=== PATIENT | male | born 1985 | race Caucasian/White ===

== ENCOUNTER 2017-06-27 18:54 | Emergency (ER) | payer SELFPAY ==
[~2017-06-27] VITALS: Ht 172.7 cm; Wt 102.1 kg
--- NOTE | 2017-06-27 18:58 | ER Report ---
History and Physical Time Seen By MD: 18:57 HPI/ROS CHIEF COMPLAINT: Left lower quadrant abdominal pain HISTORY OF PRESENT ILLNESS: 31-year-old male presents ambulatory to the ER . He only history is obtained through an medical interpreter line. Patient notes 3 days of left lower quadrant intermittent abdominal pain. He did by heavy lifting. Patient notes no nausea, vomiting, diarrhea or constipation. He notes no change in bowel habits. He notes no dysuria, frequency or hematuria. He denies previous abdominal surgery. He describes pain as 4/10, sharp in nature. He denies alleviating or exacerbating factors except as noted above. Patient also denies hernia formation in his groin area. REVIEW OF SYSTEMS: Respiratory: No cough, no dyspnea. Cardiovascular: No chest pain, no palpitations. Gastrointestinal: As above Musculoskeletal: No back pain. Allergies: Coded Allergies: No Known Drug Allergies (Unverified , 06/27/17) Home Meds Active Scripts Tramadol Hcl (TRAMADOL HCL) 50 Mg Tablet, 1 TAB PO Q6H Y for PAIN, #20 MG TAKE ONE TABLETS BY MOUTH every SIX HOURS NEEDED for pain Prov:CARMEN STEVEN DO 06/27/17 Reviewed Nurses Notes: Yes Old Medical Records Reviewed: Yes Hx Smoking: No Hx Substance Use Disorder: No Hx Alcohol Use: No Constitutional Vital Sign - Last 24 Hours 06/27/17 06/27/17 06/27/17 06/27/17 19:01 19:03 19:15 19:17 Temp 98.2 Pulse 71 60 Resp 14 B/P (MAP) 130/84 (99) 130/84 123/76 (92) Pulse Ox 94 95 O2 Delivery Room Air 06/27/17 06/27/17 06/27/17 19:30 19:45 20:00 Pulse 67 68 63 B/P (MAP) 124/86 (99) 116/85 (95) Pulse Ox 93 94 92 Physical Exam General Appearance: The patient is alert, has no immediate need for airway protection and no current signs of toxicity. Vital signs stable, afebrile, pulse ox normal, no acute distress Eyes: Pupils equal and round no injection. Respiratory: Chest is non tender, lungs are clear to auscultation. Cardiac: regular rate and rhythm Gastrointestinal: Abdomen is soft and non tender, no masses, bowel sounds normal. Musculoskeletal: Neck: Neck is supple and non tender. Extremities have full range of motion and are non tender. Skin: No rashes or lesions. DIFFERENTIAL DIAGNOSIS: After history and physical exam differential diagnosis was considered for abdominal pain including but not limited to appendicitis, cholecystitis, gastritis and urinary tract infection. Medical Decision Making Data Points Result Diagram: 06/27/17191406/27/171914 Laboratory Hematology Test 06/27/17 19:00 06/27/17 19:15 Urine Color Straw Urine Clarity Clear Urine pH 5.0 pH (4.8-9.5) Urine Specific [employer] 1.013 Urine Protein Negative mg/dL (NEGATIVE) Urine Glucose (UA) Negative mg/dL (NEGATIVE) Urine Ketones Negative mg/dL (NEGATIVE) Urine Blood Negative (NEGATIVE) Urine Nitrite Negative (NEGATIVE) Urine Bilirubin Negative (NEGATIVE) Urine Urobilinogen Negative mg/dL (0.2-1.9) Urine Leukocyte Esterase Negative (NEGATIVE) Urine RBC None /HPF (0-2/HPF) Urine WBC None /HPF (0-5/HPF) Urine Squamous Epithelial Cells Few /LPF (</=FEW) Urine Bacteria Negative /HPF (NONE-FEW) Urine Mucus None /HPF (NONE-FEW) Red Blood Count 5.95 M/uL (4.00-5.60) Mean Corpuscular Volume 89.5 fL (80.0-96.0) Mean Corpuscular Hemoglobin 31.2 pg (26.0-33.0) Mean Corpuscular Hemoglobin Concent 34.9 g/dL (32.0-36.0) Red Cell Distribution Width 13.3 % (11.5-14.5) Mean Platelet Volume 9.2 fL (7.2-11.1) Neutrophils (%) (Auto) 53.9 % (39.4-72.5) Lymphocytes (%) (Auto) 37.4 % (17.6-49.6) Monocytes (%) (Auto) 6.3 % (4.1-12.4) Eosinophils (%) (Auto) 1.9 % (0.4-6.7) Basophils (%) (Auto) 0.5 % (0.3-1.4) Nucleated RBC Relative Count (auto) 0.1 /100WBC Neutrophils # (Auto) 5.0 K/uL (2.0-7.4) Lymphocytes # (Auto) 3.5 K/uL (1.3-3.6) Monocytes # (Auto) 0.6 K/uL (0.3-1.0) Eosinophils # (Auto) 0.2 K/uL (0.0-0.5) Basophils # (Auto) 0.0 K/uL (0.0-0.1) Nucleated RBC Absolute Count (auto) 0.01 K/uL Sodium Level 138 mmol/L (137-145) Potassium Level 3.4 mmol/L (3.5-5.0) Chloride Level 102 mmol/L (98-107) Carbon Dioxide Level 22 mmol/L (22-30) Blood Urea Nitrogen 15 mg/dl (9-21) Creatinine 0.90 mg/dl (0.66-1.25) Glomerular Filtration Rate Calc > 60.0 Random Glucose 112 mg/dl (75-110) Calcium Level 9.0 mg/dl (8.4-10.2) Total Bilirubin 0.6 mg/dl (0.2-1.3) Aspartate Amino Transf (AST/SGOT) 31 U/L (0-35) Alanine Aminotransferase (ALT/SGPT) 55 U/L (0-56) Alkaline Phosphatase 87 U/L (0-126) Total Protein 7.6 gm/dl (6.3-8.2) Albumin 4.3 g/dl (3.5-5.0) Amylase Level 85 U/L (0-110) Lipase 97 U/L (23-300) Chemistry Test 06/27/17 19:00 06/27/17 19:15 Urine Color Straw Urine Clarity Clear Urine pH 5.0 pH (4.8-9.5) Urine Specific [employer] 1.013 Urine Protein Negative mg/dL (NEGATIVE) Urine Glucose (UA) Negative mg/dL (NEGATIVE) Urine Ketones Negative mg/dL (NEGATIVE) Urine Blood Negative (NEGATIVE) Urine Nitrite Negative (NEGATIVE) Urine Bilirubin Negative (NEGATIVE) Urine Urobilinogen Negative mg/dL (0.2-1.9) Urine Leukocyte Esterase Negative (NEGATIVE) Urine RBC None /HPF (0-2/HPF) Urine WBC None /HPF (0-5/HPF) Urine Squamous Epithelial Cells Few /LPF (</=FEW) Urine Bacteria Negative /HPF (NONE-FEW) Urine Mucus None /HPF (NONE-FEW) White Blood Count 9.4 k/uL (4.5-11.0) Red Blood Count 5.95 M/uL (4.00-5.60) Hemoglobin 18.6 g/dL (14.0-18.0) Hematocrit 53.3 % (42.0-52.0) Mean Corpuscular Volume 89.5 fL (80.0-96.0) Mean Corpuscular Hemoglobin 31.2 pg (26.0-33.0) Mean Corpuscular Hemoglobin Concent 34.9 g/dL (32.0-36.0) Red Cell Distribution Width 13.3 % (11.5-14.5) Platelet Count 218 K/uL (150-450) Mean Platelet Volume 9.2 fL (7.2-11.1) Neutrophils (%) (Auto) 53.9 % (39.4-72.5) Lymphocytes (%) (Auto) 37.4 % (17.6-49.6) Monocytes (%) (Auto) 6.3 % (4.1-12.4) Eosinophils (%) (Auto) 1.9 % (0.4-6.7) Basophils (%) (Auto) 0.5 % (0.3-1.4) Nucleated RBC Relative Count (auto) 0.1 /100WBC Neutrophils # (Auto) 5.0 K/uL (2.0-7.4) Lymphocytes # (Auto) 3.5 K/uL (1.3-3.6) Monocytes # (Auto) 0.6 K/uL (0.3-1.0) Eosinophils # (Auto) 0.2 K/uL (0.0-0.5) Basophils # (Auto) 0.0 K/uL (0.0-0.1) Nucleated RBC Absolute Count (auto) 0.01 K/uL Glomerular Filtration Rate Calc > 60.0 Calcium Level 9.0 mg/dl (8.4-10.2) Total Bilirubin 0.6 mg/dl (0.2-1.3) Aspartate Amino Transf (AST/SGOT) 31 U/L (0-35) Alanine Aminotransferase (ALT/SGPT) 55 U/L (0-56) Alkaline Phosphatase 87 U/L (0-126) Total Protein 7.6 gm/dl (6.3-8.2) Albumin 4.3 g/dl (3.5-5.0) Amylase Level 85 U/L (0-110) Lipase 97 U/L (23-300) Urinalysis Test 06/27/17 19:00 Urine Color Straw Urine Clarity Clear Urine pH 5.0 pH (4.8-9.5) Urine Specific [employer] 1.013 Urine Protein Negative mg/dL (NEGATIVE) Urine Glucose (UA) Negative mg/dL (NEGATIVE) Urine Ketones Negative mg/dL (NEGATIVE) Urine Blood Negative (NEGATIVE) Urine Nitrite Negative (NEGATIVE) Urine Bilirubin Negative (NEGATIVE) Urine Urobilinogen Negative mg/dL (0.2-1.9) Urine Leukocyte Esterase Negative (NEGATIVE) Urine RBC None /HPF (0-2/HPF) Urine WBC None /HPF (0-5/HPF) Urine Squamous Epithelial Cells Few /LPF (</=FEW) Urine Bacteria Negative /HPF (NONE-FEW) Urine Mucus None /HPF (NONE-FEW) EKG/Imaging Imaging X-ray: Single view KUB was obtained. I viewed the images myself on the PACS system. My interpretation of the images is: Nonspecific bowel gas pattern. There is fecal stasis in the right colon.. The radiologist interpretation had no clinically significant variation from this interpretation. ED Course/Re-evaluation ED Course Patient was admitted to an examination room. H&P was done. The differential diagnoses was considered. On clinical examination. Patient has left lower quadrant pain. It does not appear to be intra-abdominal. His diagnostic studies are unremarkable, except elevated H&H consistent with likely sleep apnea from patient's body habitus. A mildly elevated glucose suggesting prediabetes. It seems to be aggravated by work. He has no hernias. On examination. He is advised to conservative treatment plan. Taking ibuprofen for inflammatory pain relief. He is given tramadol for pain relief. He is advised to follow-up with primary care if his symptoms persist or Gen. surgery. Decision to Disposition Date: Jun 27, 2017 Decision to Disposition Time: 19:52 Depart Departure Latest Vital Signs Vital Signs Date Time Temp Pulse Resp B/P (MAP) Pulse Ox O2 Delivery O2 Flow Rate FiO2 06/27/17 20:00 63 116/85 (95) 92 06/27/17 19:03 98.2 14 Room Air Impression: Primary Impression: Abdominal pain, left lower quadrant Additional Impressions: Polycythemia Prediabetes Condition: Improved Disposition: HOME OR SELF-CARE Referrals: CITLALY KHAN MD New Scripts Tramadol Hcl (TRAMADOL HCL) 50 Mg Tablet 1 TAB PO Q6H Y for PAIN, #20 MG TAKE ONE TABLETS BY MOUTH every SIX HOURS NEEDED for pain Prov: CARMEN STEVEN DO 06/27/17 Patient Instructions: Abdominal Pain (ED) Problem Qualifiers CARMEN STEVEN DO Jun 27, 2017 18:58
[2017-06-27 19:30] LABS: PLATELET COUNT, AUTOMATED 218 K/uL (150-450)
[2017-06-27] MEDS ORDERED: TRAM-420 PO (19:57)
[2017-06-27 20:00] VITALS: BP 116/85
--- NOTE | 2017-06-27 20:03 | RADIOLOGY IMAGING REPORT ---
FACILITY: [facility] PATIENT NAME: Satya Carter : 1985 MR: [id number] V: [id number] EXAM DATE: ORDERING PHYSICIAN: CARMEN STEVEN TECHNOLOGIST: Location: [facility] [place] Patient: Satya Carter : 1985 Visit/Account:[id number] Date of Sevice: 06/27/2017 Examination: KUB SINGLE VIEW ABDOMEN Comparison: None. History: Left lower abdomen pain. Findings: The diaphragm is excluded from this study. Bowel gas pattern is otherwise unremarkable. Sma ll amount of stool predominantly within the right hemicolon. No soft tissue calcifications. Osseous s tructures are intact. IMPRESSION: Negative abdomen. Report Dictated By: Ismael Canales MD at 06/27/2017 7:56 PM Report E-Signed By: Ismael Canales MD at 06/27/2017 7:58 PM WSN:[id number]
[2017-06-27] MEDS ORDERED: traMADol 50 MG TAB TH 2 TAB/BOTTLE PO ONE (20:20)
== END 2017-06-27 22:08 | disposition home or self-care (01) ==
LOC: ER 19:20
DX: R73.03 Prediabetes (principal); D75.1 Secondary polycythemia; R10.32 Left lower quadrant pain
CPT/HCPCS: 74018; 81001; 82150; 83690; 85025; 99284; C9399; 82040; 82247; 82310; 82374; 82435; 82565; 82947; 84075; 84132; 84155; 84295; 84450; 84460; 84520

== ENCOUNTER 2017-07-05 19:46 | Emergency (ER) | payer OTHER ==
[~2017-07-05] VITALS: Ht 182.9 cm; Wt 85.7 kg
[~2017-07-05 19:46] MED LIST changes: -AMOX500T10 PO
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
[2017-07-05 21:01] LABS: PLATELET COUNT, AUTOMATED 210 K/uL (150-450)
[2017-07-05 21:13] LABS: INR 0.99
[2017-07-05] MEDS ORDERED: MORPHINE 2 MG/ML SYR IVP ONE (21:25)
[2017-07-05] MEDS ORDERED: ONDANSETRON 4 MG/2 ML VIAL IVP ONE (21:25)
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
[2017-07-05 23:25] VITALS: BP 136/91
== END 2017-07-05 23:35 | disposition home or self-care (01) ==
LOC: ER 20:10
DX: S46.911A Strain of unspecified muscle, fascia and tendon at shoulder and upper arm level, right arm, initial encounter (principal); S76.011A Strain of muscle, fascia and tendon of right hip, initial encounter; S96.911A Strain of unspecified muscle and tendon at ankle and foot level, right foot, initial encounter; V49.40XA Driver injured in collision with unspecified motor vehicles in traffic accident, initial encounter
CPT/HCPCS: 70450; 71045; 72125; 72131; 73030; 73080; 73502; 73564; 73630; 85025; 85610; 85730; 96374; 96375; 99284; J2270; J2405; 82040; 82247; 82310; 82374; 82435; 82565; 82947; 84075; 84132; 84155; 84295; 84450; 84460; 84520

== ENCOUNTER → 2017-07-05 | Outpatient (CLI) | payer OTHER ==
[~2017-07-05] MED LIST: AMOX500T10 PO; TRAM-420 PO
== END ==
LOC: AMB 19:24
PROVIDERS: ATTEND Nurse Practitioner
DX: M54.2 Cervicalgia (principal); M25.552 Pain in left hip; V49.40XA Driver injured in collision with unspecified motor vehicles in traffic accident, initial encounter
CPT/HCPCS: A0425; A0429

== ENCOUNTER 2017-07-15 15:40 | Emergency (ER) | payer SELFPAY ==
[~2017-07-15] VITALS: Ht 177.8 cm; Wt 85.7 kg
[2017-07-15] MEDS ORDERED: AMOX500T10 PO (16:23)
--- NOTE | 2017-07-15 16:26 | ER Report ---
History and Physical Time Seen By MD: 15:55 Hx. of Stated Complaint: pt reports sore throat and fever for 2 days HPI/ROS CHIEF COMPLAINT: Sore throat, fever HISTORY OF PRESENT ILLNESS: 31-year-old male patient presents to emergency room with his with complaint of sore throat and fever. Patient states this been going on for the past 2 days. Patient states he is having significant amounts of pain with eating and drinking. He denies having any nausea, vomiting or diarrhea. Patient states he has some tenderness to the left side of his face. He has not taken any medication for this. He denies having any stomachache. REVIEW OF SYSTEMS: Respiratory: No cough, no dyspnea. Cardiovascular: No chest pain, no palpitations. Gastrointestinal: No vomiting, no abdominal pain. Musculoskeletal: No back pain. Allergies: Coded Allergies: No Known Drug Allergies (Unverified , 07/15/17) Home Meds Active Scripts Amoxicillin 500 Mg Tab (AMOXICILLIN 500 MG TAB) 500 Mg Tablet, 1 TAB PO Q12H for 10 Days, #20 TAB Prov:MANA LEE 07/15/17 Past Medical/Surgical History Patient denies any pertinent medical or surgical history. Reviewed Nurses Notes: Yes Hx Smoking: No Hx Substance Use Disorder: No Hx Alcohol Use: No Constitutional Vital Sign - Last 24 Hours 07/15/17 07/15/17 15:47 16:33 Temp 99.2 99.0 Pulse 100 70 Resp 16 16 B/P (MAP) 149/76 136/82 (100) Pulse Ox 93 93 O2 Delivery Room Air Room Air Physical Exam General Appearance: The patient is alert, has no immediate need for airway protection and no current signs of toxicity. ENT: Tympanic membranes are pearly-gomes, auditory canals are patent, mucous membranes are moist. Posterior pharynx shows bilateral tonsillar hypertrophy, 3+ , with exudate. Respiratory: Chest is non tender, lungs are clear to auscultation. Cardiac: regular rate and rhythm Gastrointestinal: Abdomen is soft and non tender, no masses, bowel sounds normal. Musculoskeletal: Neck: Neck is supple and non tender. Bilateral cervical chain lymphadenopathy. Extremities have full range of motion and are non tender. Skin: No rashes or lesions. DIFFERENTIAL DIAGNOSIS: After history and physical exam differential diagnosis was considered for strep pharyngitis, upper respiratory infection, mono. Medical Decision Making Data Points Laboratory Hematology Test 07/15/17 15:51 Group A Streptococcus Screen Positive (NEGATIVE) Chemistry Test 07/15/17 15:51 Group A Streptococcus Screen Positive (NEGATIVE) ED Course/Re-evaluation ED Course Patient was admitted to exam room, history and physical were obtained. Differential diagnoses were considered. On examination patient has enlarged tonsils, 3+, exudate noted on both tonsils. A strep screen was done which was positive. We discussed findings with the patient and his . We will go ahead and place him on amoxicillin. He states Tylenol or ibuprofen as if pain. states that he is having significant amounts of pain with swallowing. We'll go ahead and prescribe him Magic mouthwash that he is to take every 1-2 hours as needed for pain. Discussed this with the patient and his and they verbalized understanding and agreement. Decision to Disposition Date: Jul 15, 2017 Decision to Disposition Time: 16:25 Depart Departure Latest Vital Signs Vital Signs Date Time Temp Pulse Resp B/P (MAP) Pulse Ox O2 Delivery O2 Flow Rate FiO2 07/15/17 16:33 99.0 70 16 136/82 (100) 93 Room Air Impression: Primary Impression: Strep pharyngitis Condition: Improved Disposition: HOME OR SELF-CARE New Scripts Amoxicillin 500 Mg Tab (AMOXICILLIN 500 MG TAB) 500 Mg Tablet 1 TAB PO Q12H for 10 Days, #20 TAB Prov: MANA LEE 07/15/17 Patient Instructions: Strep Throat (ED) Additional Instructions: Take prescribed antibiotics every twelve hours for 10 days. Increase fluid intake. May take ibuprofen or tylenol for pain. Magic mouthwash may be used every 1-2 hours as needed for pain- swish and swallow. Follow up with primary care provider next week. MANA LEE Jul 15, 2017 16:26
[2017-07-15 16:33] VITALS: BP 136/82
== END 2017-07-15 16:33 | disposition home or self-care (01) ==
LOC: ER 16:08
DX: J02.0 Streptococcal pharyngitis (principal)
CPT/HCPCS: 87081; 87880; 99282

== ENCOUNTER 2017-09-27 10:24 | Emergency (ER) | payer SELFPAY ==
[~2017-09-27 10:24] MED LIST changes: +AMOX500T10 PO
--- NOTE | 2017-09-27 10:26 | ER Report ---
History and Physical Time Seen By MD: 10:26 HPI/ROS CHIEF COMPLAINT: Epigastric abdominal pain HISTORY OF PRESENT ILLNESS: Patient is a 32-year-old male with no contributory past medical history who presents with episodic epigastric pain over the past 2 months. Patient describes the pain as a burning type discomfort worse typically when laying down or during the evenings. Also initially made better by food but then it causes more discomfort about an hour later. He denies any black or tarry stools. Has taken Pepto-Bismol with significant relief in symptoms. This would be the 1st time the patient is being evaluated for this type of discomfort. She denies chest pain or difficulty breathing. Denies fevers or chills. REVIEW OF SYSTEMS: Constitutional: No fever, no chills. Eyes: No discharge. ENT: No sore throat. Cardiovascular: No chest pain, no palpitations. Respiratory: No cough, no shortness of breath. Gastrointestinal: Epigastric abdominal pain associated with nausea Genitourinary: No hematuria. Musculoskeletal: No back pain. Skin: No rashes. Neurological: No headache. Allergies: Coded Allergies: No Known Drug Allergies (Unverified , 07/15/17) Home Meds Active Scripts Famotidine (PEPCID) 20 Mg Tablet, 20 MG PO BID, #60 TAB 0 Refills Prov:CON FOLEY MD 09/27/17 Reported Medications Penicillin V Potassium 500 Mg Tab (PENICILLIN V POTASSIUM 500 MG TAB) 500 Mg Tablet, 500 MG PO, TAB 09/27/17 Discontinued Scripts Amoxicillin 500 Mg Tab (AMOXICILLIN 500 MG TAB) 500 Mg Tablet, 1 TAB PO Q12H for 10 Days, #20 TAB Prov:MANA LEE 07/15/17 Past Medical/Surgical History Noncontributory towards this chief complaint Hx Smoking: No Hx Substance Use Disorder: No Hx Alcohol Use: No Constitutional Vital Sign - Last 24 Hours 09/27/17 10:29 Temp 98.1 Pulse 71 Resp 16 B/P (MAP) 117/78 Pulse Ox 93 Physical Exam General Appearance: The patient is alert, has no immediate need for airway protection and no current signs of toxicity. Eyes: Conjunctiva are clear bilaterally Respiratory: Chest is non tender, lungs are clear to auscultation. Cardiac: regular rate and rhythm Gastrointestinal: Epigastric abdominal discomfort without guarding or rebound tenderness. Normal bowel sounds. Musculoskeletal: Neck: Neck is supple and non tender. Extremities have full range of motion and are non tender. Skin: No rashes or lesions. Medical Decision Making Data Points Result Diagram: 09/27/17 1112 09/27/17 1112 Laboratory Hematology Test 09/27/17 11:12 Red Blood Count 5.57 M/uL (4.00-5.60) Mean Corpuscular Volume 89.3 fL (80.0-96.0) Mean Corpuscular Hemoglobin 31.9 pg (26.0-33.0) Mean Corpuscular Hemoglobin Concent 35.7 g/dL (32.0-36.0) Red Cell Distribution Width 13.4 % (11.5-14.5) Mean Platelet Volume 8.9 fL (7.2-11.1) Neutrophils (%) (Auto) 65.2 % (39.4-72.5) Lymphocytes (%) (Auto) 27.2 % (17.6-49.6) Monocytes (%) (Auto) 4.9 % (4.1-12.4) Eosinophils (%) (Auto) 2.3 % (0.4-6.7) Basophils (%) (Auto) 0.4 % (0.3-1.4) Nucleated RBC Relative Count (auto) 0.2 /100WBC Neutrophils # (Auto) 6.1 K/uL (2.0-7.4) Lymphocytes # (Auto) 2.5 K/uL (1.3-3.6) Monocytes # (Auto) 0.5 K/uL (0.3-1.0) Eosinophils # (Auto) 0.2 K/uL (0.0-0.5) Basophils # (Auto) 0.0 K/uL (0.0-0.1) Nucleated RBC Absolute Count (auto) 0.01 K/uL Sodium Level 140 mmol/L (137-145) Potassium Level 3.7 mmol/L (3.5-5.0) Chloride Level 103 mmol/L (98-107) Carbon Dioxide Level 24 mmol/L (22-30) Blood Urea Nitrogen 10 mg/dl (9-21) Creatinine 1.00 mg/dl (0.66-1.25) Glomerular Filtration Rate Calc > 60.0 Random Glucose 101 mg/dl (75-110) Calcium Level 9.2 mg/dl (8.4-10.2) Total Bilirubin 0.6 mg/dl (0.2-1.3) Aspartate Amino Transf (AST/SGOT) 27 U/L (0-35) Alanine Aminotransferase (ALT/SGPT) 50 U/L (0-56) Alkaline Phosphatase 89 U/L (0-126) Total Protein 7.0 gm/dl (6.3-8.2) Albumin 4.0 g/dl (3.5-5.0) Lipase 64 U/L (23-300) Helicobacter pylori IgG Antibody Negative (NEGATIVE) Chemistry Test 09/27/17 11:12 White Blood Count 9.3 k/uL (4.5-11.0) Red Blood Count 5.57 M/uL (4.00-5.60) Hemoglobin 17.7 g/dL (14.0-18.0) Hematocrit 49.7 % (42.0-52.0) Mean Corpuscular Volume 89.3 fL (80.0-96.0) Mean Corpuscular Hemoglobin 31.9 pg (26.0-33.0) Mean Corpuscular Hemoglobin Concent 35.7 g/dL (32.0-36.0) Red Cell Distribution Width 13.4 % (11.5-14.5) Platelet Count 251 K/uL (150-450) Mean Platelet Volume 8.9 fL (7.2-11.1) Neutrophils (%) (Auto) 65.2 % (39.4-72.5) Lymphocytes (%) (Auto) 27.2 % (17.6-49.6) Monocytes (%) (Auto) 4.9 % (4.1-12.4) Eosinophils (%) (Auto) 2.3 % (0.4-6.7) Basophils (%) (Auto) 0.4 % (0.3-1.4) Nucleated RBC Relative Count (auto) 0.2 /100WBC Neutrophils # (Auto) 6.1 K/uL (2.0-7.4) Lymphocytes # (Auto) 2.5 K/uL (1.3-3.6) Monocytes # (Auto) 0.5 K/uL (0.3-1.0) Eosinophils # (Auto) 0.2 K/uL (0.0-0.5) Basophils # (Auto) 0.0 K/uL (0.0-0.1) Nucleated RBC Absolute Count (auto) 0.01 K/uL Glomerular Filtration Rate Calc > 60.0 Calcium Level 9.2 mg/dl (8.4-10.2) Total Bilirubin 0.6 mg/dl (0.2-1.3) Aspartate Amino Transf (AST/SGOT) 27 U/L (0-35) Alanine Aminotransferase (ALT/SGPT) 50 U/L (0-56) Alkaline Phosphatase 89 U/L (0-126) Total Protein 7.0 gm/dl (6.3-8.2) Albumin 4.0 g/dl (3.5-5.0) Lipase 64 U/L (23-300) Helicobacter pylori IgG Antibody Negative (NEGATIVE) ED Course/Re-evaluation ED Course 09/27/2017 11:04:08 am plan at this time will be abdominal workup including CBC amylase lipase H pylori screen. We'll also obtain acute abdominal series. We will give Zofran IV fluids and Pepcid IV. Decision to Disposition Date: September 27, 2017 Decision to Disposition Time: 11:48 Depart Departure Latest Vital Signs Vital Signs Date Time Temp Pulse Resp B/P (MAP) Pulse Ox O2 Delivery O2 Flow Rate FiO2 09/27/17 10:29 98.1 71 16 117/78 93 Impression: Primary Impression: Gastritis Condition: Improved Disposition: HOME OR SELF-CARE Referrals: EDUAR SPICER MD 2 Weeks if symptoms persist New Scripts Famotidine (PEPCID) 20 Mg Tablet 20 MG PO BID, #60 TAB 0 Refills Prov: CON FOLEY MD 09/27/17 Departure Forms: ER Transition Record, Medications Reconciliation, Off Work/ School Form, School or Work Release?: Work Number of days to be released: 1 Patient Portal Information Patient Instructions: Gastritis (ED) Additional Instructions: Your blood work or in the emergency department along with your x-rays appeared normal. No bleed believed this time U have some inflammation to her stomach which is called gastritis. He was started on Pepcid which she should take one pill twice a day for the next 30 days. I does also recommended that if her symptoms persist after 2 weeks he should follow-up with who is a general surgeon so that you can set up an endoscopy to further evaluate this complaint Problem Qualifiers Primary Impression: Gastritis Gastritis type: unspecified gastritis Chronicity: acute Gastritis bleeding : without bleeding Qualified Codes: K29.00 - Acute gastritis without bleeding CON FOLEY MD September 27, 2017 10:26
[2017-09-27] MEDS ORDERED: PENI-24 PO (10:37)
[2017-09-27] MEDS ORDERED: FAMOTIDINE(*) 20MG/50ML PREMIX 50 ML IVPB ONE (11:04)
[2017-09-27] MEDS ORDERED: NS(*) 0.9% 1000 ML BAG 1,000 ML IV ONE (11:04)
[2017-09-27] MEDS ORDERED: ONDANSETRON 4 MG/2 ML VIAL IVP ONE (11:05)
[2017-09-27 11:22] LABS: PLATELET COUNT, AUTOMATED 251 K/uL (150-450)
--- NOTE | 2017-09-27 11:44 | RADIOLOGY IMAGING REPORT ---
[place] [facility] [place] Satya [place] : 1985 MR: [id number] V: [id number] EXAM DATE: ORDERING PHYSICIAN: CON FOLEY TECHNOLOGIST: Location: [facility] - [place] Patient: Satya Carter : 1985 Visit/Account:[id number] Date of Sevice: 09/27/2017 Exam type: ACUTE ABDOMEN SERIES 3 VIEW History: ABD PAIN Comparison: None. Findings: Supine and upright views of the abdomen reveal a nonspecific bowel gas pattern. There is no evidence of organomegaly or pathologic intra-abdominal calcifications. PA view the chest reveals no evidence of acute pulmonary consolidation or pleural effusions. The cardiac silhouette is normal in size. IMPRESSION: 1. Nonspecific bowel gas pattern No evidence of pulmonary consolidation Report Dictated By: Isabelle Almendarez MD at 09/27/2017 11:40 AM Report E-Signed By: Isabelle Almendarez MD at 09/27/2017 11:41 AM WSN:[id number]
[2017-09-27] MEDS ORDERED: FAMO20TA28 PO (11:47)
[2017-09-27 12:00] VITALS: BP 97/69
== END 2017-09-27 12:13 | disposition home or self-care (01) ==
LOC: ER 10:28
DX: K29.00 Acute gastritis without bleeding (principal)
CPT/HCPCS: 36415; 74022; 83690; 85025; 86677; 96361; 96374; 96375; 99283; J2405; J3490; J7030; 82040; 82247; 82310; 82374; 82435; 82565; 82947; 84075; 84132; 84155; 84295; 84450; 84460; 84520

== ENCOUNTER 2017-12-29 14:08 | Emergency (ER) | payer SELFPAY ==
[~2017-12-29 14:08] MED LIST changes: +FAMO20TA28 PO; +PENI-24 PO
--- NOTE | 2017-12-29 14:19 | ER Report ---
History and Physical Time Seen By MD: 14:19 (CON FOLEY MD) HPI/ROS CHIEF COMPLAINT: Runny nose congestion sinus pressure right rib pain HISTORY OF PRESENT ILLNESS: Patient is a 32-year-old male who presents emergency Department with approximate 2 weeks of upper respiratory infectious symptoms including runny nose congestion sinus pressure he denies fevers or chills but does report postnasal drip with cough. He also reports having a fall approximately 2 weeks ago onto his right side and does have some pain to the posterior right ribs. Patient is not on any blood thinners. Patient has no other significant past medical history. REVIEW OF SYSTEMS: ENT: Postnasal drip, sinus congestion Respiratory: Cough Cardiovascular: No chest pain, no palpitations. Gastrointestinal: No vomiting, no abdominal pain. Musculoskeletal: No back pain. Right posterior rib pain (CON FOLEY MD) Allergies: Coded Allergies: No Known Drug Allergies (Unverified , 12/29/17) Home Meds Active Scripts Pseudoephedrine Hcl (SUDAFED 12-HOUR) 120 Mg Tablet.er, 120 MG PO Q12H for congestion, #20 TAB 0 Refills Prov:CON FOLEY MD 12/29/17 Amoxicillin/Pot Clav 875-125 Mg Tab (AUGMENTIN 875-125 TABLET) 1 Each Tablet, 1 TAB PO Q12H, #20 TAB 0 Refills Prov:CON FOLEY MD 12/29/17 Discontinued Reported Medications Penicillin V Potassium 500 Mg Tab (PENICILLIN V POTASSIUM 500 MG TAB) 500 Mg Tablet, 500 MG PO, TAB 09/27/17 Discontinued Scripts Famotidine (PEPCID) 20 Mg Tablet, 20 MG PO BID, #60 TAB 0 Refills Prov:CON FOLEY MD 09/27/17 Past Medical/Surgical History Noncontributory (CON FOLEY MD) Hx Smoking: No Hx Substance Use Disorder: No Hx Alcohol Use: No (CON FOLEY MD) Constitutional Vital Sign - Last 24 Hours 12/29/17 14:19 Pulse 77 Resp 20 B/P (MAP) 121/79 Pulse Ox 93 O2 Delivery Room Air (LAURORA,LOYDA V DO) Physical Exam General Appearance: The patient is alert, has no immediate need for airway protection and no current signs of toxicity. Eyes: Pupils equal and round no injection. ENT: Ears with boggy turbinates. Posterior cobblestoning in the pharynx. TMs clear neck is supple Respiratory: Chest is non tender, lungs are clear to auscultation. Patient has tenderness to the right posterior chest wall without ecchymosis Cardiac: regular rate and rhythm Gastrointestinal: Abdomen is soft and non tender, no masses, bowel sounds normal. Musculoskeletal: Neck: Neck is supple and non tender. Extremities have full range of motion and are non tender. Skin: No rashes or lesions. (CON FOLEY MD) Medical Decision Making ED Course/Re-evaluation ED Course 12/29/2017 3:01:13 pm plan at this time will be x-ray of the right ribs. Patient with clinical signs of sinusitis. We'll place patient on decongestants and antibiotics. (CON FOLEY MD) ED Course 12/29/2017 3:34:35 pm xrays show no fx or infection in the lungs. will continue to treat for sinusitis. Decision to Disposition Date: Dec 29, 2017 Decision to Disposition Time: 15:34 (LOYDA MAN DO) Depart Departure Latest Vital Signs Vital Signs Date Time Temp Pulse Resp B/P (MAP) Pulse Ox O2 Delivery O2 Flow Rate FiO2 12/29/17 14:19 77 20 121/79 93 Room Air (LOYDA MAN DO) Impression: Primary Impression: Acute sinusitis Condition: Improved Disposition: HOME OR SELF-CARE New Scripts Pseudoephedrine Hcl (SUDAFED 12-HOUR) 120 Mg Tablet.er 120 MG PO Q12H for congestion, #20 TAB 0 Refills Prov: CON FOLEY MD 12/29/17 Amoxicillin/Pot Clav 875-125 Mg Tab (AUGMENTIN 875-125 TABLET) 1 Each Tablet 1 TAB PO Q12H, #20 TAB 0 Refills Prov: CON FOLEY MD 12/29/17 Patient Instructions: Sinusitis (GEN) Additional Instructions: augmentin one pill twice a day Follow up with your doctor. Return as needed. Problem Qualifiers Primary Impression: Acute sinusitis Sinusitis location: unspecified location Recurrence: not specified as recurrent Qualified Codes: J01.90 - Acute sinusitis, unspecified CON FOLEY MD Dec 29, 2017 14:19 LOYDA MAN DO Dec 29, 2017 15:35
[2017-12-29] MEDS ORDERED: PSEU120T68 PO (15:03)
[2017-12-29] MEDS ORDERED: AMOX-559 PO (15:03)
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
[2017-12-29 15:30] VITALS: BP 109/57
== END 2017-12-29 15:41 | disposition home or self-care (01) ==
LOC: ER 14:18
DX: J01.90 Acute sinusitis, unspecified (principal); R07.81 Pleurodynia
CPT/HCPCS: 71046; 71100; 99284